=== PATIENT | male | born 1985 | race Caucasian/White ===

== ENCOUNTER 2016-07-21 13:59 | Inpatient (IN) | payer OTHER ==
[~2016-07-21] VITALS: Ht 182.9 cm; Wt 90.0 kg
[2016-07-21 15:00] LABS: AMPHETAMINE QUAL UR NONE DETECTED (NEG <=1000)
[2016-07-21 15:05] LABS: BASOPHIL % 0.6 % (0-2); PLATELET COUNT 231 x10^3mcL (130-400); RED CELL DISTRIBUTION WIDTH 13.3 % (11.5-14.5)
[2016-07-21 15:06] LABS: CALCIUM 9.2 mg/dL (8.5-10.1); CARBON DIOXIDE 29.7 mmol/L (21-32); CHLORIDE SERUM 103 mmol/L (98-107); GFR1 > 60 mL/min; GLUCOSE SERUM 103 mg/dL (74-106); POTASSIUM SERUM 3.3 mmol/L (3.5-5.1); SODIUM SERUM 142 mmol/L (136-145)
[2016-07-21 15:13] LABS: ALBUMIN 4.3 g/dL (3.4-5.0); ALKALINE PHOSPHATASE 124 U/L (46-116); ALT/SGPT 91 U/L (16-63); AMYLASE 108 U/L (25-115); AST/SGOT 41 U/L (15-37); BILIRUBIN TOTAL 0.4 mg/dL (0.20-1.00); LIPASE 1035 IU/L (73-393); TOTAL PROTEIN, SERUM 8.1 g/dL (6.4-8.2)
[2016-07-21] MEDS ORDERED: PAXIL10 MG PO (15:47)
[2016-07-21] MEDS ORDERED: SEROQUEL100 MG PO (15:47)
[2016-07-21 15:55] LABS: microscopic required? NO
[2016-07-21 15:57] LABS: UA SPECIFIC GRAVITY <=1.005 (1.005-1.035); urine erythrocyte NEGATIVE (NEGATIVE)
[2016-07-21 17:29] LABS: CHOLESTEROL/HDL RATIO 5.2; MAGNESIUM 2.7 mg/dL (1.8-2.4); PHOSPHOROUS 3.7 mg/dL (2.5-4.9)
[2016-07-21 17:37] LABS: T3 TOTAL 1.14 ng/mL
[2016-07-21 17:38] LABS: FREE T4 0.78 ng/dL (0.76-1.46); FREE THYROXINE INDEX 2.1 ug/dL (1.4-4.5); T4(THYROXINE) 5.9 ug/dL (4.7-13.3)
[2016-07-21 19:40] VITALS: BP 117/73
[2016-07-21 19:51] VITALS: BP 117/73
[2016-07-21 19:58] VITALS: Ht 182.9 cm; Wt 90.0 kg
[2016-07-22 05:35] VITALS: BP 127/86
[2016-07-22 06:33] LABS: CALCIUM 8.4 mg/dL (8.5-10.1); CARBON DIOXIDE 28.3 mmol/L (21-32); CHLORIDE SERUM 107 mmol/L (98-107); CREATININE SERUM 0.9 mg/dL (0.7-1.3); GFR1 > 60 mL/min; GLUCOSE SERUM 86 mg/dL (74-106); LIPASE 128 IU/L (73-393); PHOSPHOROUS 2.7 mg/dL (2.5-4.9); SODIUM SERUM 144 mmol/L (136-145)
[2016-07-22 07:17] LABS: BASOPHIL % 0.5 % (0-2); PLATELET COUNT 201 x10^3mcL (130-400); RED CELL DISTRIBUTION WIDTH 13.2 % (11.5-14.5)
[2016-07-22 15:25] VITALS: BP 118/76
[2016-07-22 17:19] VITALS: BP 143/88
[2016-07-22] MEDS ORDERED: ATI1 PO (17:41)
[2016-07-22] MEDS ORDERED: THI100 PO (17:42)
[2016-07-22] MEDS ORDERED: THERAGRAN-M1 TA4 PO (17:42)
[2016-07-22] MEDS ORDERED: FOL1 PO (17:42)
[2016-07-22 18:10] VITALS: BP 143/88
== END 2016-07-22 19:15 | disposition home or self-care (01) | DRG 775 ==
LOC: ED 13:59 → DU 15:50
PROVIDERS: Emergency Medicine; ADMIT Family Medicine
DX: F10.129 Alcohol abuse with intoxication, unspecified (principal); G92 Toxic encephalopathy; K85.90 Acute pancreatitis without necrosis or infection, unspecified; R45.851 Suicidal ideations; E83.41 Hypermagnesemia; K72.90 Hepatic failure, unspecified without coma; F43.10 Post-traumatic stress disorder, unspecified; E87.6 Hypokalemia; E78.5 Hyperlipidemia, unspecified; F41.1 Generalized anxiety disorder; Z62.810 Personal history of physical and sexual abuse in childhood; Y90.0 Blood alcohol level of less than 20 mg/100 ml; F31.32 Bipolar disorder, current episode depressed, moderate
CPT/HCPCS: 83880; 84439; 99406; G0480; J1200; J1630; J2060; J3411; J3475; J3480; J3490; J7030; Q0092